=== PATIENT | female | born 1990 | race Caucasian/White ===

== ENCOUNTER 2022-10-22 13:09 | Emergency (ER) | payer OTHER, SELFPAY ==
[2022-10-22 13:29] VITALS: BP 130/79; PULSE 102; RESP 18; TEMP 36.6; O2SAT 97; BMI 34.7
--- NOTE | 2022-10-22 13:29 | ED_ITS ---
HPI - General Adult General Chief complaint: Eye Problems Stated complaint: Vision Problems No Injury Time Seen by Provider: 10/22/22 13:51 Source: patient Mode of arrival: ambulatory Limitations: no limitations History of Present Illness HPI narrative: Patient is a 32 year old assigned female at with no reported medical history presenting to the emergency department today with right eye pain. Patient states that over the last month she has noticed pain behind her right eye, especially when focusing on things. Patient states that she has also noticed an increase general headaches. Patient states that her vision is unaffected. Patient states that she has had an increase in stress at work lately. Patient denies any dizziness, lightheadedness, abdominal pain, nausea, vomiting, fever, chills, blurry vision, double vision, loss of vision, chest pain, difficulty breathing, shortness of breath, back pain, night sweats, pain with urination, increased urinary frequency, increased urinary urgency, blood in her urine or stool, syncope or a near syncopal episode, recent trauma or falls, bowel incontinence, bladder incontinence, bowel retention, bladder retention, or any other complaints at this time. Onset (ago): month(s) (1) Location: head and eyes Severity: mild Severity scale (1-10): 3 Quality: aching and dull Pain Consistency: constant Relieving factors: none Exacerbating factors: none Associated symptoms: headaches Treatments prior to arrival: none Related Data Allergies Allergy/AdvReac Type Severity Reaction Status Date / Time No Known Allergies Allergy Verified 10/22/22 13:29 [No Known Allergies*] Review of Systems Constitutional: Constitutional: Reports no additional constitutional complaints, Denies chills, Denies fever(s), Reports headache(s) and Denies night sweats Eyes: Eyes: Reports no additional eye complaints, Denies blurry vision, Denies change in vision, Denies diplopia, Denies eye discharge, Denies loss of vision and Reports eye pain (behind right eye) ENT: Denies dizziness and Reports headache(s) Cardiovascular: Cardiovascular: Reports no additional cardiovascular complaints, Denies chest pain, Denies lightheadedness, Denies Loss of Consciousness and Denies dyspnea Respiratory: Respiratory: Reports no additional respiratory complaints and Denies dyspnea Gastrointestinal: Gastrointestinal: Reports no additional gastrointestinal complaints, Denies abdominal pain, Denies melena, Denies hematochezia, Denies c hange in bowel habits and Denies change in stool character Genitourinary: Genitourinary: Denies hematuria, Denies urinary frequency, Denies dysuria, Denies urinary incontinence, Denies urinary hesitancy and Denies urinary urgency Musculoskeletal: Musculoskeletal: Reports no additional musculoskeletal complaints, Denies numbness and Denies tingling Neurologic: Denies dizziness, Reports headache(s), Denies loss of vision, Denies numbness and Denies tingling Psychiatric: Psychiatric: Reports no additional psychiatric complaints Endocrine: Endocrine: Reports no additional endocrine complaints Hematologic/Lymphatic: Hematologic/Lymphatic: Reports no additional hematologic/lymphatic complaints Allergic/Immunologic: Allergic/Immunologic: Reports no additional allergic/immunologic complaints [facility] Past Medical History Attestation statement: The following information was validated with the patient. Source: old records reviewed and nursing notes reviewed Social History Social History Advance Directives: No Advance Directives Information Provided: No Physical Exam ED Vital Signs: Vital Signs - 24 hr 10/22/22 13:29 Temperature 97.9 F Pulse Rate 102 H Respiratory Rate 18 Blood Pressure 130/79 Pulse Oximetry 97 Oxygen Delivery Method Room Air BMI result Body Mass Index 34.7 Const General: cooperative, no acute distress, alert and awake Nutritional Appearance: well nourished Orientation/consciousness: patient oriented x3 Limitations: no limitations HENMT Head: Yes normal to inspection and Yes atraumatic Ears: hearing grossly normal bilaterally and external ears normal General nose exam: Normal external nose present, no nasal discharge noted and no epistaxis Face and sinus: Yes normal facial exam, No abrasion and No laceration Mouth: Normal oral and palatal mucosa present, no drooling and no muffled voice Eyes General: appearance normal, both eyes and all related structures Visual Cervantes: normal visual cervantes by confrontation Alignment and Position: alignment normal Periorbital: periorbital findings normal Eyelids: Yes eyelids normal Conjunctivae: conjunctivae normal Sclerae: sclerae normal Corneas: corneas normal Pupils: Equal, round and reactive pupils present EOM: EOMs intact bilaterally Direct Ophthalmoscopy: normal light reflex Neck Neck: Yes normal visual inspection, Yes full ROM and Yes no lymphadenopathy Chest Chest palpation & inspection: normal inspection of the chest Resp Effort & Inspection: normal respiratory effort and able to speak in complete sentences Auscultation: clear to auscultation bilaterally Cardio Rate: regular rate Rhythm: regular rhythm GI Inspection: Yes normal to inspection Palpation (GI): Soft to palpation, not firm, nontender and no guarding Neuro General: patient oriented x3 and moves all extremities Cranial nerves: Yes Equal, round and reactive pupils present Cognition (Neuro): normal cognition Motor exam (neuro): 5/5 motor strength present throughout Sensory Exam: Normal double simultaneous stimulation for sensation Coordination: [id number] test normal Extrem General: Yes normal to inspection, Yes full ROM and Yes capillary refill normal Psych Appearance: grossly normal Mental Status: mental status grossly normal Affect: normal affect Attitude: cooperative Thought process: Normal thought process present Thought content: Normal thought content present Insight: Good insight present (Psych) Course Course Course Narrative: RME: 32yo F w/PMHx Acid Reflux, c/o right eye pressure & feeling like shes going cross eyed x 1.5 months. Admits to light bothering eyes when shes outside. Tried to make appt w/PCP & occupational therapy program director w/o success. Admits to MURGUIA's as well over the past few weeks. [facility] and labs ordered Full HPI, ROS and PE to be performed by primary ED provider. Medical Decision Making Medical Decision Making MDM Narrative: Patient is a 32 year old assigned female at with no reported medical history presenting to the emergency department today with right eye pain and headaches. Patient's physical exam was unremarkable including a normal visual acuity examination. Patient's blood work was unremarkable. I explained my phy sical exam findings as well as all test results to the patient. I answered all questions asked by the patient. Patient declined any medication for pain. I stressed the importance of the patient taking her medication as prescribed. I stressed the importance of the patient following up with her primary care provider and an group insurance specialist. I stressed the importance of the patient returning to the emergency department immediately if her symptoms were to worsen or if she were to develop any dizziness, shortness of breath, difficulty breathing, chest pain, blurry vision, loss of vision, nausea, vomiting, abdominal pain, fever, chills, back pain, or any other complaints. Patient verbalized agreement and understanding with this treatment plan and discharge. Differential Diagnosis Differential Diagnoses: The differential diagnosis associated with the presentation includes Right eye pain Ocular migraines Admission/Observation Consideration of admission/observation: Escalation of care including admission/observation considered Patient would have been admitted to the hospital had her work up had any findings where hospital admission was appropriate and her clinical presentation warranted hospital admission. Lab Data MDM Lab Attestation statement: I reviewed the patient's lab results. My interpretation of these studies and their corresponding values is that they are grossly normal. 10/22/22 14:19 10/22/22 14:19 Labs: Lab Results 10/22/22 10/22/22 Range/Units 14:19 14:19 WBC 7.5 (4.8-10.8) X10*3/uL RBC 4.15 L (4.20-5.50) X10*6/uL Hgb 13.0 (12.0-16.0) g/dl Hct 38.4 (37.0-47.0) % MCV 92.5 (80.0-98.0) fL MCH 31.3 (27.0-33.0) pg MCHC 33.9 (31.0-35.0) g/dl RDW 12.8 (11.0-16.0) % Plt Count 208 (160-400) X10*3/uL MPV 10.3 (9.4-12.3) fL Immature Gran % (Auto) 0.8 H (0.0-0.4) % Neut % (Auto) 64.3 (45-73) % Lymph % (Auto) 29.1 (20-40) % Mcmullen % (Auto) 4.6 (2-11) % Eos % (Auto) 0.9 (0-4) % Baso % (Auto) 0.3 (0-2) % Lymph # (Auto) 2.2 (1.2-4.9) X10*3/uL Mcmullen # (Auto) 0.4 (0.1-1.2) X10*3/uL Eos # (Auto) 0.1 (0.0-0.4) X10*3/uL Baso # (Auto) 0.0 (0.0-0.2) X10*3/uL Abs Immat Gran (auto) 0.06 H (0.00-0.03) X10*3/uL Absolute Neuts (auto) 4.8 (2.0-8.3) x10*3/uL Absolute Nucleated RBC 0.000 (0.0-0.012) X10*3/uL Nucleated RBC % (auto) 0.0 (0.0-0.2) /100WBC Sodium 140 (135-145) mmol/L Potassium 3.9 (3.3-5.1) mmol/L Chloride 108 (96-108) mmol/L Carbon Dioxide 25 (22-29) mmol/L Anion Gap 11 L (12-20) BUN 15 (9-16) mg/dL Creatinine 0.80 (0.5-1.4) mg/dL Estim Creat Clear Calc 101.8 Estimated GFR > 60 Random Glucose 123 H (60-115) mg/dL Calcium 9.6 (8.4-10.2) mg/dL Tests considered The following testing was considered but not selected: CT scan of the head was considered however, the patient's neurological examination was negative and my clinical suspicion for acute intracranial process was low. Discharge Plan Discharge Clinical Impression: Ocular migraine Patient Disposition: Home, Self-Care Instructions: Ocular Migraine (ED) Additional Instructions: Follow up with your primary care provider and an group insurance specialist. Return to the emergency department immediately if your symptoms worsen or if you develop any dizziness, shortness of breath, difficulty breathing, chest pain, blurry vision, loss of vision, nausea, vomiting, abdominal pain, fever, chills, back pain, or any other complaints. [place]: [facility] [facility] [place] (Call to establish and follow up with a primary care provider. If you already have a primary care provider, please follow up with them.) [facility] [place] [facility] Group] (Call to establish and follow up with a primary care provider. If you already have a primary care provider, pl ease follow up with them.) [facility] [place] [facility] [Provider Group] (Call to establish and follow up with a primary care provider. If you already have a primary care provider, please follow up with them.) Suleman Stover [Physician] - (Call to establish and follow up with an group insurance specialist.) Stand Alone Forms: Work/School Release Interventions: ED Discharge Assessment Last Done: 10/22/22 15:08 Discharge Date/Time: 10/22/22 15:09 Print Language: Danish
[2022-10-22 14:24] LABS: MANUAL DIFF FLAG NO
[2022-10-22 14:35] LABS: Basophils Percent Auto 0.3 % (0-2); Eosinophils Absolute Auto 0.1 X10*3/uL (0.0-0.4); Eosinophils Percent Auto 0.9 % (0-4); Hematocrit 38.4 % (37.0-47.0); Imm Gran Abs Auto 0.06 X10*3/uL (0.00-0.03); Imm Gran Pct Auto 0.8 % (0.0-0.4); Lymphocytes Absolute Auto 2.2 X10*3/uL (1.2-4.9); Lymphocytes Percent Auto 29.1 % (20-40); Mean Corpuscular HGB Conc 33.9 g/dl (31.0-35.0); Mean Corpuscular Hemoglobin 31.3 pg (27.0-33.0); Mean Corpuscular Volume 92.5 fL (80.0-98.0); Mean Platelet Volume 10.3 fL (9.4-12.3); Monocytes Absolute Auto 0.4 X10*3/uL (0.1-1.2); Monocytes Percent Auto 4.6 % (2-11); Neutrophils Absolute Auto 4.8 x10*3/uL (2.0-8.3); Neutrophils Percent Auto 64.3 % (45-73); Platelet Count 208 X10*3/uL (160-400); Red Blood Count 4.15 X10*6/uL (4.20-5.50); Red Cell Distribution Width 12.8 % (11.0-16.0); White Blood Count 7.5 X10*3/uL (4.8-10.8)
[2022-10-22 14:47] LABS: Anion Gap 11 (12-20); Blood Urea Nitrogen 15 mg/dL (9-16); Calcium 9.6 mg/dL (8.4-10.2); Carbon Dioxide 25 mmol/L (22-29); Chloride 108 mmol/L (96-108); Creatinine Clr Calc Pharmacy 101.8; Estimated Glomerular Filt Rate > 60; Glucose Random 123 mg/dL (60-115); Potassium 3.9 mmol/L (3.3-5.1); Sodium 140 mmol/L (135-145)
== END 2022-10-22 15:09 | disposition home or self-care (01) ==
PROVIDERS: Physician Assistant; Emergency Provider Emergency Medicine
DX: G43.109 Migraine with aura, not intractable, without status migrainosus (principal); H57.11 Ocular pain, right eye; Z79.899 Other long term (current) drug therapy
CPT/HCPCS: 36415; 80048; 85025; 99283

== ENCOUNTER 2023-02-23 08:29 | Outpatient (AMB) | payer OTHER, SELFPAY ==
[2023-02-23 08:30] VITALS: BP 122/76; PULSE 84; O2SAT 97; BMI 33.9
--- NOTE | 2023-02-23 08:30 | MHC.OFFVIS ---
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 I feel like my headache centers my nose and nasal area. Allergies No Known Allergies [No Known Allergies*] Allergy (Verified 02/23/23 08:38) Medication List - Last Reconciled 02/23/23 by Michelle Urias, SALVADOR famotidine 20 mg PO BID HPI HPI Comments History of Present Illness Details Right-handed 32-yr-old female presents for new pt evaluation of headache disorder. Pt reports she has headaches for the past few yrs- not sure exactly how long. She wonders if this was caused by her hx of sniffing cocaine and heroine- she has been sober x's > 6 yrs now. Headache questionnaire: Previous work-up? None Typical headache characteristics: Prodrome symptoms? Unsure Aura? None Location, quality, characteristics? Starts as pressure in the bridge of her nose, can move into the mid-frontal region. Pain intensity? 6-7/10 Associated symptoms? Photophobia, phonophobia, osmophobia, nausea, activity intolerance Focal weakness, Parethesias, Autonomic s/s? None Postdrome? Some residual symptoms Triggers? stress, lights, smells Any positional, valsalva, exertional, sexual activity triggers? feels increased head pressure if bends over for an extended time Menstrual triggers? Unsure- her menses has been irregular Time of day? more in the midday Duration? 1-2 days Frequency? 1-2 x's per week How does headache impact your life? Works as a customer care agent. Usually does not miss work. May sometimes miss her personal activities. Current acute medication use/interventions: Ibuprofen Previous acute medication use: None Current preventative medication use: None Previous preventative medication use: None Non-pharmacological interventions: Ice, migraine cooling caps, rest. Other history of headache disorder? No History of musculoskeletal disorders or injury? Back pain, lower lumbar scoliosis History of concussion/head injury? None History of mood disorder? ADHD- no longer on tx. Anxiety. History of sleep disorder? Sleeps ok- does wake up a lot- some times to void and sometimes d/t lower back discomfort. Her father has DES and her mother likely has DES. Has bruxism- not tolerating her mouth guard- rubs her gums and causes dry mouth. History of respiratory disease? None History of CV disease? None History of coagulopathy? None History of endocrine or metabolic disease? Has hx of gestational diabetes History of seizure? None History of GI disorder? GERD. More prone to loose stools. Other? Has had skin issues- dandruff, cystic skin lesions, acne. Family planning? No plans- not on control. Does not currently have a partner. Family history of migraine or other headache disorder? Mom has headaches PFSH Medical History (Updated 02/23/23 @ 16:25 by SALVADOR Lorenzo) Substance dependence in remission GERD (gastroesophageal reflux disease) Anxiety ADHD Surgical History [place] teeth removed Family History Father HTN (hypertension) Mother HTN (hypertension) Thyroid disease Social History (Updated 02/23/23 @ 08:40 by BRIAN Cui) Alcohol intake: never Patient Tobacco Use Status: Former Tobacco user Substance Use Type: Marijuana Review of Systems Const Details: See scanned ROS form Physical Exam Vital Signs: Last Vital Signs Pulse 84 02/23/23 08:30 BP 122/76 02/23/23 08:30 Pulse Ox 97 02/23/23 08:30 Oxygen Delivery Method Room Air 02/23/23 08:30 BMI result Body Mass Index 33.9 Const Orientation/consciousness: patient oriented x3 HEENT Other: No palpable scalp tenderness. Mallampati stage IV Head: Yes normocephalic Resp Effort & Inspection: normal respiratory effort and able to speak in complete sentences Back/Spine/Pelvis Other: Bilateral R > L posterior cervical tightness. Cervical ROM: full Left Spurling: normal Right Spurling: normal. Neuro Other: Photophobia General: patient oriented x3 Cranial nerves: Yes CN's II-XII intact bilaterally Cognition (Neuro): normal cognition Gait exam (Neuro): Normal gait present Motor exam (neuro): 5/5 motor strength present throughout Deep tendon reflexes (DTR's): Right triceps reflex intensity grade: 2+, Left triceps reflex intensity grade: 2+, Rt Biceps (C5, C6): 2+, Left biceps reflex intensity grade: 2+, Right brachioradialis reflex intensity grade: 2+, Left brachioradialis reflex intensity grade: 2+, Right patellar reflex intensity grade: 2+ and Left patellar reflex intensity grade: 2+ Coordination: [id number] test normal, tandem gait normal and Romberg test negative Pupils: Normal pupillary reactivity/response: bilateral Psych Appearance: grossly normal Mental Status: mental status grossly normal Speech and movement: Normal speech and movement present Affect: normal affect Attitude: cooperative Thought process: Normal thought process present Assessment & Plan Assessment & Plan (1) Worsening headaches: Comment: w/ positional component. DDx secondary MURGUIA (sinus, high pressure headache); migraine w/o aura Code(s): R51.9 - Headache, unspecified (2) Frontal sinus pain: Code(s): J34.89 - Other specified disorders of nose and nasal sinuses (3) Sinus pain: Code(s): J34.89 - Other specified disorders of nose and nasal sinuses (4) Increased sensitivity of smell: Code(s): R43.1 - Parosmia (5) Sleep difficulties: Code(s): G47.9 - Sleep disorder, unspecified Plan Pt advised to undergo CT sinus to assess for sinus dz/process Pt advised to undergo brain MRI w/wo to assess for secondary etiologies, including of worsening positional headaches w/ increasing photophobia, smell sensitivity, and hx nasal intake of opiods. For overall headache management: Discussed importance of good self-care, including but not limited to maintaining a healthy diet, adequate fluid intake, adequate sleep, and engaging in regular physical activity. For headache triggers: Track headaches, especially after any treatment regimen changes. Migraine [employer]+ is one of many headache tracking apps. Light sensitivity tips: Patient may try blue light filtering glasses, green glasses, green light therapy.. For sleep: Re-try mouth guard- may need to be adjusted by dentist Trial OTC Xylimelts for dry mouth Future considerations- HST. For acute headache treatment: Discussed importance of taking acute medications at the first sign of headache, however stressed importance of avoiding acute medication overuse (especially with combined headache medications). Trial Sumatriptan 100mg tab, 1/2 - 1 tab (50-100mg) at onset of headache, may repeat in 2 hours. Max of 2 tabs (200mg) per 24 hours. May adjunct with OTC Tylenol 650mg q 4 hours, Ibuprofen 600mg q 6 hours, or Naproxen 440mg q 12 hrs prn. Reviewed potential adverse effects of triptans, including but not limited to nausea, fatigue, chest tightness/tingling (usually passes within a few minutes), medication overuse headaches. Previous acute migraine medication trials: Ibuprofen- ineffective Acute migraine medication contraindications: None at this time For headache prevention medication: Discussed that preventative medications should be taken routinely as prescribed for best effect, it may take several weeks for full effect to take effect. Start Riboflavin 400mg qam If Riboflavin ineffective, start Amitriptyline 10mg qhs. Previous migraine prevention medication trials: None Migraine prevention medication contraindications: Would avoid Magnesium- d/t pt prone to frequent stools. For ADHD: Pt will be starting college classes next month. Information given on adult ADHD resources- advsied her to read/explore these prior to the start of her semester Pt to follow-up in 1.5-2 months or sooner prn. Orders: Orders CT sinus wo IV con Today J34.89 - Other specified disorders of nose and nasal sinuses, R43.1 - Parosmia, R51.9 - Headache, unspecified MR head/brain wo/w con Today J34.89 - Other specified disorders of nose and nasal sinuses, R43.1 - Parosmia, R51.9 - Headache, unspecified Medications: New riboflavin (vitamin B2) 400 mg PO DAILY 30 days 30 tabs 6RF amitriptyline 10 mg PO BEDTIME 30 days 30 tabs 3RF sumatriptan succinate (0.5 - 1 x 100 mg) 50 - 100 mg orally at onset of headache, may repeat in 2 hrs PRN; max 2 tabs per day or 4 tabs/week (may take with Ibuprofen) 30 days 12 tabs 6RF migraine headache Coding Level of Care Code New Pt Level 4 (68072) Diagnoses Worsening headaches R51.9 Frontal sinus pain J34.89 Sinus pain J34.89 Increased sensitivity of smell R43.1 Sleep difficulties G47.9
== END 2023-02-23 09:46 | disposition home or self-care (01) ==
PROVIDERS: Visit Provider Nurse Practitioner Family
DX: R51.9 Headache, unspecified (principal); J34.89 Other specified disorders of nose and nasal sinuses; R43.1 Parosmia; G47.9 Sleep disorder, unspecified
CPT/HCPCS: 99204

== ENCOUNTER → 2023-02-23 08:29 | Outpatient (BNVA) | payer OTHER, SELFPAY | PROVIDERS: Visit Provider Nurse Practitioner Family | DX: R51.9 Headache, unspecified (principal); J34.89 Other specified disorders of nose and nasal sinuses; R43.1 Parosmia; G47.9 Sleep disorder, unspecified | CPT/HCPCS: 99202 ==

== ENCOUNTER 2023-03-10 07:43 | Emergency (ER) | payer OTHER, SELFPAY ==
--- NOTE | ~2023-03-10 | XR_ITS ---
EXAMINATION: XR CHEST CLINICAL INFORMATION: Chest pain COMPARISON: 06/08/2015 TECHNIQUE: Frontal view of the chest was obtained. FINDINGS: Lungs are well-inflated and clear. Trachea is midline in position. No interstitial disease, consolidation or mass. No pleural effusion or pneumothorax. Cardiac silhouette and pulmonary vessels are normal in size. The mediastinum and jacquelin have normal contour. The visualized bones and upper abdomen are unremarkable. XR/XR chest 1V IMPRESSION: No acute cardiopulmonary abnormality.
--- NOTE | 2023-03-10 07:49 | ECG_ITS ---
Test Reason : cp Blood Pressure : / mmHG Vent. Rate : 095 BPM Atrial Rate : 095 BPM P-R Int : 146 ms QRS Dur : 090 ms QT Int : 354 ms P-R-T Axes : 035 017 045 degrees QTc Int : 444 ms Normal sinus rhythm Normal ECG When compared with ECG of 08-JUN-2015 09:32, No significant change was found Referred By: Generic ED Physician Electronically Signed By:Earl Cruz
[2023-03-10 08:03] VITALS: BP 133/90; PULSE 94; RESP 18; TEMP 36.3; O2SAT 98; BMI 33.4
[2023-03-10 08:51] LABS: Influenza A PCR NEGATIVE (Negative); Influenza B PCR NEGATIVE (Negative); Resp Syncy Virus RNA Qual PCR NEGATIVE (Negative); SARS COV2 PCR INHOUSE NEGATIVE (Negative)
[2023-03-10 09:42] VITALS: BP 124/77; PULSE 81; RESP 18; TEMP 37.2; O2SAT 97
--- NOTE | 2023-03-10 09:57 | ED_ITS ---
HPI - URI/Sore Throat General Chief Complaint: Upper Respiratory Symptoms Stated Complaint: RSV? Chest pain/R ear clogged Time Seen by Provider: 03/10/23 09:03 Source: patient Mode of arrival: ambulatory Limitations: no limitations History of Present Illness HPI Narrative: 32-year-old female presents with productive cough cough, congestion, fatigue, malaise, myalgias, muffled hearing in the right ear, runny nose, substernal nonradiating chest pain times 1221. Patient reports this started with a sore throat which has since resolved and then it progressed to what she has no. Son at home tested + for RSV last Related Data Home Medications Medication Instructions Recorded Confirmed famotidine 20 mg tablet 20 mg PO BID 02/23/23 02/23/23 Previous Rx's Medication Instructions Recorded amitriptyline 10 mg tablet 10 mg PO BEDTIME 30 days #30 tabs 02/23/23 riboflavin (vitamin B2) 400 mg 400 mg PO DAILY 30 days #30 tabs 02/23/23 tablet sumatriptan succinate 100 mg tablet 50 - 100 mg (0.5 - 1 x 100 mg) PO 02/23/23 .COMPLEX PRN migraine headache 30 days #12 tabs albuterol sulfate 90 mcg/actuation 2 inh inhalation Q4-6H PRN 03/10/23 breath activated powder inhaler shortness of breath or wheezing #1 ea azithromycin 250 mg tablet See Rx Instructions PO .COMPLEX #6 03/10/23 tabs prednisone 20 mg tablet 40 mg (2 x 20 mg) PO DAILY 5 days 03/10/23 #10 tabs Allergies Allergy/AdvReac Type Severity Reaction Status Date / Time No Known Allergies Allergy Verified 03/10/23 08:02 [No Known Allergies*] Review of Systems 2 Review of Systems: Constitutional : No Weight loss, No Fever, No Chills, No Fatigue, No Malaise ENT/Mouth : No sore throat, No Rhinorrhea, +ear pain Eyes: No Eye Pain, No Swelling, No Redness Cardiovascular : + Chest Pain, No SOB, No Dyspnea on Exertion, No Orthopnea, No Edema, No Palpitations Respiratory : + Cough, + Sputum, No Wheezing Gastrointestinal : No Nausea, No Vomiting, No Diarrhea, No Constipation, No abdominal Pain, No Hematochezia, No Melena Genitourinary : No Dysuria, No Urinary Frequency, No Hematuria, Musculoskeletal : No joint pain, No Myalgias, No Joint Swelling Skin : No Skin Lesions, No rash Neuro : No Weakness, No Numbness, No Dizziness, No Headache Psych : No Anxiety/Panic, No Depression All other systems reviewed and are negative Yes all other systems are reviewed and are negative [facility] Past Medical History Attestation statement: The following information was validated with the patient. Source: old records reviewed and nursing notes reviewed Onset Date is defined in the Problem List Problems that require an onset date and time if occurred within 24 hrs of arrival to the ED Aortic Dissection and Rupture; Neurologic impairment; Cardiopulmonary Arrest; Endotracheal Intubation; Insertion or Replacement of Mechanical Circulatory Assist Device Medical History Substance dependence in remission GERD (gastroesophageal reflux disease) Anxiety ADHD Surgical History [place] teeth removed Family History Family History Father HTN (hypertension) Mother HTN (hypertension) Thyroid disease Social History Social History Alcohol intake: never Patient Tobacco Use Status: Former Tobacco user Smoked in Last 30 Days: No Use of substances other than those prescribed or required for medical reasons: Yes Substance Use Type: Marijuana Advance Directives: No Patient : No Physical Exam 2 Vital Signs: Vital Signs: Last Vital Signs Temp 98.9 F 03/10/23 09:42 Pulse 81 03/10/23 09:42 Resp 18 03/10/23 09:42 BP 124/77 03/10/23 09:42 Pulse Ox 97 03/10/23 09:42 O2 Del Method Room Air 03/10/23 09:42 BMI result Body Mass Index 33.4 vss Appearance: Alert.? Oriented X3.? No acute distress.? Head: Normocephalic, atraumatic, no step-offs or deformities Eyes: Pupils equal, round and reactive to light.? ENT: Pharynx normal.?Patent midlineuvula speaking in full sentences controlling secretions. R ear unremarkable no errythema or bulging of TM or EC Neck: Normal inspection.? Neck supple.? CVS: Normal heart rate and rhythm.? Pulses normal.? Respiratory: No respiratory distress.? Breath sounds normal.? Abdomen: Soft and nontender.? Skin: Skin warm and dry.? Normal skin color.? Normal skin turgor.? Extremities: No lower extremity edema.? No calf ttp. 5/5 strength to bilateral upper and lower extremities Neuro: Oriented X 3.? No motor deficit.? No sensory deficit. CN 2-12 intact Course Reevaluation(s) Reevaluation #1: CBC unremarkable. Chemistry no acute findings requiring intervention. Troponin negative, EKG nonischemic. Flu/COVID/RSV negative. Strep negative. Chest x- ray appears unremarkable. Patient to be discharged home with treatment for bronchitis. Educated patient on diagnosis and treatment plan, answered all question, patient verbalizes understanding. At this time patient will be discharged home, advised to return with new or worsening symptoms. Educated on worrisome signs and symptoms and when to return. At this time I feel comfortable discharge home. Time: 11:29 Medical Decision Making Medical Decision Making [facility] Narrative: 1007 32 yo f presents w/ URI sx PE benign History and physical exam concerning for bronchitis versus viral illness versus rsv. Unlikely pulmonary embolism, ACS, dissection, pneumonia, ARDS . No signs of retropharyngeal abscess, peritonsillar abscess, otitis media, otitis externa, mastoiditis. Plan- labs, imaging, viral test Differential Diagnosis Differential Diagnoses: The differential diagnosis associated with the presentation includes History and physical exam concerning for bronchitis versus viral illness versus rsv. Unlikely pulmonary embolism, ACS, dissection, pneumonia, ARDS . No signs of retropharyngeal abscess, peritonsillar abscess, otitis media, otitis externa, mastoiditis. Admission/Observation Consideration of admission/observation: Escalation of care including admission/observation considered Lab Data [facility] Lab Attestation statement: I reviewed the patient's lab results. 03/10/23 10:39 03/10/23 10:39 Labs: Lab Results 03/10/23 03/10/23 03/10/23 Range/Units 08:10 10:38 10:39 WBC 6.9 (4.8-10.8) X10*3/uL RBC 4.50 (4.20-5.50) X10*6/uL Hgb 13.9 (12.0-16.0) g/dl Hct 40.1 (37.0-47.0) % MCV 89.1 (80.0-98.0) fL MCH 30.9 (27.0-33.0) pg MCHC 34.7 (31.0-35.0) g/dl RDW 12.9 (11.0-16.0) % Plt Count 270 D (160-400) X10*3/uL MPV 9.5 (9.4-12.3) fL Immature Gran % (Auto) 0.4 (0.0-0.4) % Neut % (Auto) 57.9 (45-73) % Lymph % (Auto) 35.3 (20-40) % [place] % (Auto) 5.8 (2-11) % Eos % (Auto) 0.3 (0-4) % Baso % (Auto) 0.3 (0-2) % Lymph # (Auto) 2.4 (1.2-4.9) X10*3/uL [place] # (Auto) 0.4 (0.1-1.2) X10*3/uL Eos # (Auto) 0.0 (0.0-0.4) X10*3/uL Baso # (Auto) 0.0 (0.0-0.2) X10*3/uL Abs Immat Gran (auto) 0.03 (0.00-0.03) X10*3/uL Absolute Neuts (auto) 4.0 (2.0-8.3) x10*3/uL Absolute Nucleated RBC 0.000 (0.0-0.012) X10*3/uL Nucleated RBC % (auto) 0.0 (0.0-0.2) /100WBC Sodium 141 (135-145) mmol/L Potassium 3.6 (3.3-5.1) mmol/L Chloride 112 H (96-108) mmol/L Carbon Dioxide 19 L (22-29) mmol/L Anion Gap 14 (12-20) BUN 11 (9-16) mg/dL Creatinine 0.67 (0.5-1.4) mg/dL Estim Creat Clear Calc 119.1 Estimated GFR > 60 Random Glucose 93 (60-115) mg/dL Calcium 9.2 (8.4-10.2) mg/dL Total Bilirubin 0.5 (0.0-1.0) mg/dL AST 15 (5-31) U/L ALT 22 (0-31) U/L Alkaline Phosphatase 77 (39-117) U/L Troponin I High Sens < 2.7 (<3.5-17.0) ng/L Total Protein 7.7 (6.5-8.0) g/dL Albumin 4.5 (3.5-5.0) g/dL Influenza Type A (PCR) NEGATIVE (Negative) Influenza Type B (PCR) NEGATIVE (Negative) RSV RNA Qual (PCR) NEGATIVE (Negative) SARS-CoV-2 RNA (RT-PCR) NEGATIVE (Negative) S. pyogenes GrpA [place] Negative (Negative) Independent Interpretation I performed an independent interpretation of an: EKG (Ventricular rate of 95, IA normal, QRS normal, QT/QTC normal. No signs of acute ischemia.) and Plain X-Ray Radiology Impression Discussion of test interpretation with radiology: I have reviewed the radiologist's reading. Discharge Plan Discharge Clinical Impression: Bronchitis Patient Disposition: Home, Self-Care Instructions: Acute Bronchitis (ED) Additional Instructions: Take your medications as prescribed. If you were prescribed antibiotics today, it is important that you take your medication to their entirety, do not skip any doses, do not finish them early. Follow-up with your primary care provider this week. Return to the emergency department with new or worsening symptoms. Such as fevers, chills, chest pain, shortness of breath, nausea, vomiting, dizziness, headache, vision changes, lethargy In case of emergency call 911 Prescriptions: New albuterol sulfate 90 mcg/actuation aerosol powdr breath activated 2 inh inhalation Q4-6H PRN (Reason: shortness of breath or wheezing) Qty: 1 0RF azithromycin 250 mg tablet See Rx Instructions .ROUTE .COMPLEX Qty: 6 0RF Rx Instructions: For 250 mg dose pack: take 500 mg today (day 1), then 250 mg for 4 days (days 2-5) prednisone 20 mg tablet 40 mg PO DAILY 5 Days Qty: 10 0RF No Action famotidine 20 mg tablet 20 mg PO BID sumatriptan succinate 100 mg tablet 50 - 100 mg PO .COMPLEX PRN (Reason: migraine headache) 30 Days Qty: 12 6RF Rx Instructions: 50 - 100 mg orally at onset of headache, may repeat in 2 hrs PRN; max 2 tabs per day or 4 tabs/week (may take with Ibuprofen) riboflavin (vitamin B2) 400 mg tablet 400 mg PO DAILY 30 Days Qty: 30 6RF amitriptyline 10 mg tablet 10 mg PO BEDTIME 30 Days Qty: 30 3RF Referrals: Physician,Unknown J [Primary Care Provider] - 2 days
[2023-03-10 10:43] LABS: MANUAL DIFF FLAG NO
[2023-03-10 10:45] LABS: Basophils Percent Auto 0.3 % (0-2); Eosinophils Percent Auto 0.3 % (0-4); Hematocrit 40.1 % (37.0-47.0); Hemoglobin 13.9 g/dl (12.0-16.0); Imm Gran Abs Auto 0.03 X10*3/uL (0.00-0.03); Imm Gran Pct Auto 0.4 % (0.0-0.4); Lymphocytes Absolute Auto 2.4 X10*3/uL (1.2-4.9); Lymphocytes Percent Auto 35.3 % (20-40); Mean Corpuscular HGB Conc 34.7 g/dl (31.0-35.0); Mean Corpuscular Hemoglobin 30.9 pg (27.0-33.0); Mean Corpuscular Volume 89.1 fL (80.0-98.0); Mean Platelet Volume 9.5 fL (9.4-12.3); Monocytes Absolute Auto 0.4 X10*3/uL (0.1-1.2); Monocytes Percent Auto 5.8 % (2-11); Neutrophils Percent Auto 57.9 % (45-73); Platelet Count 270 X10*3/uL (160-400); Red Cell Distribution Width 12.9 % (11.0-16.0); White Blood Count 6.9 X10*3/uL (4.8-10.8)
[2023-03-10 11:03] LABS: Alanine Aminotransferase 22 U/L (0-31); Albumin Level 4.5 g/dL (3.5-5.0); Alkaline Phosphatase 77 U/L (39-117); Anion Gap 14 (12-20); Aspartate Amino Transferase 15 U/L (5-31); Bilirubin Total 0.5 mg/dL (0.0-1.0); Blood Urea Nitrogen 11 mg/dL (9-16); Calcium 9.2 mg/dL (8.4-10.2); Carbon Dioxide 19 mmol/L (22-29); Chloride 112 mmol/L (96-108); Creatinine Clr Calc Pharmacy 119.1; Estimated Glomerular Filt Rate > 60; Glucose Random 93 mg/dL (60-115); Potassium 3.6 mmol/L (3.3-5.1); Sodium 141 mmol/L (135-145); Total Protein 7.7 g/dL (6.5-8.0)
[2023-03-10 11:13] LABS: Troponin-I High Sensitivity < 2.7 ng/L (<3.5-17.0)
[2023-03-10 11:26] LABS: IDNOW Serial# 08D9AD1C; Strep A Nucleic Acid Negative (Negative)
== END 2023-03-10 11:41 | disposition home or self-care (01) ==
PROVIDERS: Physician Assistant; Emergency Provider Emergency Medicine
DX: J40 Bronchitis, not specified as acute or chronic (principal); Z20.822 Contact with and (suspected) exposure to COVID-19; Z20.828 Contact with and (suspected) exposure to other viral communicable diseases; H92.01 Otalgia, right ear; Z87.891 Personal history of nicotine dependence
CPT/HCPCS: 0241U; 36415; 71045; 80053; 84484; 85025; 87651; 93005; 99283; 99284

== ENCOUNTER → 2023-03-10 07:49 | Outpatient (BNV) | payer OTHER, SELFPAY | PROVIDERS: Emergency Provider Emergency Medicine; Visit Provider Internal Medicine Cardiovascular Disease | DX: R07.9 Chest pain, unspecified (principal) | CPT/HCPCS: 93010 ==

== ENCOUNTER 2023-03-25 07:37 | Outpatient (REF) | payer OTHER, SELFPAY ==
--- NOTE | ~2023-03-25 | CT_ITS ---
CT SINUS WITHOUT CONTRAST HISTORY: Frontal sinus pain TECHNIQUE: CT images of the paranasal sinuses were acquired without contrast. This CT examination was performed using dose optimization techniques as appropriate, variously including the following: *Automated exposure control *Adjustment of mA and/or kV according to patient size (this includes techniques or standardized protocols for targeted exams where dose is matched to indication/reason for exam; i.e. extremities or head) *Use of iterative reconstruction technique DLP: 87.72 mGy-cm COMPARISON: None available FINDINGS: NASAL CAVITY: Sigmoidal nasal septal deviation with leftward curvature anteriorly narrowing the left nasal passage and mild rightward curvature of the more posterior midportion with small rightward bony spur. The nasal cavity is well aerated. The olfactory fossa are relatively symmetric. No evidence of Keros type III cribriform plate (lateral lamella 8-16 mm). FRONTAL SINUS: LEFT: Clear with patent frontal sinus drainage pathway. Anterior and posterior accessory frontal recess air cells are noted. RIGHT: Clear with patent frontal sinus drainage pathway. Anterior and posterior accessory frontal recess air cells are noted. MAXILLARY SINUS: LEFT: Trace mucosal disease. with mucosal septation traversing the sinus ostium with otherwise patent ostiomeatal unit. RIGHT: Trace mucosal disease with retention cyst/polyp in the alveolar recess and patent osteomeatal unit. ETHMOID AIR CELLS: LEFT: Clear RIGHT: Clear [place] papyracea: Intact. The left anterior ethmoid canal traverses the ethmoid air cells. SPHENOID SINUS: LEFT: Clear with patent ostium and sphenoethmoidal recess. RIGHT: Dominant and largely clear with mucosal disease traversing the ostium. Patent sphenoethmoidal recess. The sphenoid septum does not insert onto the carotid canal. Sphenoethmoidal ([place]) cell: None. OTHER: Normal appearance of the orbits. The carotid canals are covered by bone. The temporomandibular joints are normal. The mastoid air cells and middle ear cavities are well aerated. Limited evaluation of the intracranial structures without significant abnormalities. CT/CT sinus wo IV con IMPRESSION: 1. Sigmoidal nasal septal deviation with leftward curvature anteriorly narrowing the left nasal passage and mild rightward curvature of the more posterior midportion with small rightward bony spur. 2. Mild mucosal disease within the bilateral maxillary sinuses with retention cyst in the right maxillary alveolar recess. Otherwise no significant paranasal sinus mucosal disease.
== END 2023-03-25 07:38 | disposition home or self-care (01) ==
LOC: HO.CT 07:37
PROVIDERS: Visit Provider Nurse Practitioner Family
DX: R51.9 Headache, unspecified (principal); J34.89 Other specified disorders of nose and nasal sinuses; R43.1 Parosmia
CPT/HCPCS: 70486

== ENCOUNTER 2023-04-13 07:37 | Outpatient (AMB) | payer OTHER, SELFPAY ==
--- NOTE | 2023-04-13 07:38 | A.OFFVIS_ITS ---
Intake Intake Visit Reasons: 8 wks f/u - Frequent headaches [phone] Intake Note: Patient following up on headaches. headaches are better,she gave me meds but I'm not sure If I have to take it everyday. Allergies No Known Allergies [No Known Allergies*] Allergy (Verified 04/13/23 07:39) Medication List - Last Reconciled 04/13/23 by Michelle Urias, SALVADOR albuterol sulfate 90 mcg/actuation 2 inhalations inhalation Q4-6H PRN amitriptyline 10 mg PO BEDTIME 30 days azithromycin For 250 mg dose pack: take 500 mg today (day 1), then 250 mg for 4 days (days 2-5) famotidine 20 mg PO BID prednisone 40 mg (2 x 20 mg) PO DAILY 5 days riboflavin (vitamin B2) 400 mg PO DAILY 30 days sumatriptan succinate 50 - 100 mg orally at onset of headache, may repeat in 2 hrs PRN; max 2 tabs per day or 4 tabs/week (may take with Ibuprofen) 30 days HPI HPI Comments History of Present Illness Details 33-yr-old female presents for f/u televi [facility]or [facility]o visit via [place] for f/u migraine. Pt reports she has not started the migraine tx we discussed at the last visit, as she was had RSV and then also did not remember exactly how to take them and if any would worsen her GERD s/s. She states she is doing a bit better- headaches are not quite as bad. The headaches do start in the bridge of her nose. Often her glasses cause discomfort in the bridge of her nose. 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 Brain MRI scheduled for 04/17/23. 03/25/23, CT/CT sinus wo IV con IMPRESSION: 1. Sigmoidal nasal septal deviation wit h leftward curvature anteriorly narrowing the left nasal passage and mild rightward curvature of the more posterior midportion with small rightward bony spur. 2. Mild mucosal disease within the bila teral maxillary sinuses with retention cyst in the right maxillary alveolar recess. Otherwise no significant paranasal sinus mucosal disease. [facility] Medical History Substance dependence in remission GERD (gastroesophageal reflux disease) Anxiety ADHD Surgical History [place] teeth removed Family History Father HTN (hypertension) Mother HTN (hypertension) Thyroid disease Social History Alcohol intake: never Patient Tobacco Use Status: Former Tobacco user Substance Use Type: Marijuana Physical Exam Const General: cooperative and no acute distress Orientation/consciousness: patient oriented x3 Resp Effort & Inspection: normal respiratory effort and able to speak in complete sentences Neuro General: patient oriented x3 Cognition (Neuro): normal cognition Psych Appearance: grossly normal Mental Status: mental status grossly normal Speech and movement: Normal speech and movement present Affect: normal affect Attitude: cooperative Assessment & Plan Assessment & Plan (1) Frontal sinus pain: Code(s): J34.89 - Other specified disorders of nose and nasal sinuses (2) Nasal septal spur: Comment: sinus CT: Sigmoidal nasal septal deviation with leftward curvature anteriorly narrowing the left nasal passage and mild rightward curvature of the more posterior midportion with small rightward bony spur. Code(s): J34.89 - Other specified disorders of nose and nasal sinuses (3) Nose pain: Code(s): J34.89 - Other specified disorders of nose and nasal sinuses (4) Worsening headaches: Comment: w/ positional component. DDx secondary MURGUIA (sinus, high pressure headache); migraine w/o aura Code(s): R51.9 - Headache, unspecified (5) Increased sensitivity of smell: Code(s): R43.1 - Parosmia Plan Reviewed CT sinus- nasal septum spur. Will refer to ENT. Brain MRI w/wo- as scheduled- to assess for secondary etiologies, including of worsening positional headaches w/ increasing photophobia, smell sensitivity, and hx nasal intake of opiods. ? For overall headache management: Continue to optimize good self-care, including but not limited to maintaining a healthy diet, adequate fluid intake, adequate sleep, and engaging in regular physical activity. For headache triggers: Track headaches. Light sensitivity tips: Patient may try blue light filtering glasses, green glasses, green light therapy.. For sleep: Mouth guard- qhs Future considerations- HST. ? For acute headache treatment: Again try Sumatriptan 100mg tab, 1/2 - 1 tab (50-100mg) at onset of headache, may repeat in 2 hours. Max of 2 tabs (200mg) per 24 hours. May adjunct with OTC Tylenol 650mg q 4 hours, Ibuprofen 600mg q 6 hours, or Naproxen 440mg q 12 hrs prn. Previous acute migraine medication trials: Ibuprofen- ineffective Acute migraine medication contraindications: None at this time ? For headache prevention medication: Discussed that preventative medications should be taken routinely as prescribed for best effect, it may take several weeks for full effect to take effect. Start Riboflavin 400mg qam If Riboflavin ineffective, start Amitriptyline 10mg qhs. Previous migraine prevention medication trials: None Migraine prevention medication contraindications: Would avoid Magnesium- d/t pt prone to frequent stools. ? For ADHD: Monitor- pt has started college classes. Information given on adult ADHD resources- advised her to read/explore these prior to the start of her semester ? Pt to follow-up in 3 months or sooner prn. Orders: Referrals Ear/Nose/Throat Referral J34.89 - Other specified disorders of nose and nasal sinuses Telehealth Telehealth Location of provider rendering services: practice address Location of patient: address on file Patient Identification confirmed using: Name, : Yes Telehealth method: video Patient verbally consented to treatment: Yes Patient verbally consented to billing insurance company: Yes Patient informed of any privacy concerns related to visit: Yes Minutes spent on Phone/Video with Pt.: 9 Coding Level of Care Code Tele Est Pt Level 4 (54979) Diagnoses Frontal sinus pain J34.89 Nasal septal spur J34.89 Nose pain J34.89 Worsening headaches R51.9 Increased sensitivity of smell R43.1
== END 2023-04-13 10:09 | disposition home or self-care (01) ==
LOC: HO.HSMS 07:37
PROVIDERS: Visit Provider Nurse Practitioner Family
DX: J34.89 Other specified disorders of nose and nasal sinuses (principal); R51.9 Headache, unspecified; R43.1 Parosmia
CPT/HCPCS: 99214

== ENCOUNTER → 2023-04-13 07:37 | Outpatient (BNVA) | payer OTHER, SELFPAY | PROVIDERS: Visit Provider Nurse Practitioner Family ==

== ENCOUNTER 2023-04-17 08:08 | Outpatient (REF) | payer OTHER, SELFPAY ==
--- NOTE | ~2023-04-17 | MR_ITS ---
EXAMINATION: MR BRAIN WITHOUT CONTRAST CLINICAL INFORMATION: Headache COMPARISON: None available. TECHNIQUE: MRI of the brain was obtained using routine sequences without contrast. Patient was unable to complete all the prescribed sequences and refused intravenous contrast administration. FINDINGS: Ventricles, sulci and cisterns are normal. No focal cerebral, brainstem or cerebellar lesions with abnormal signal can be seen. Diffusion weighted images show no abnormal regional decrease in diffusion. Normal flow voids of major intracerebral blood vessels are seen in the visualized portion. The pituitary gland is normal. Optic chiasm is not displaced. Cerebellar tonsils position is normal. MR/MR head/brain wo con IMPRESSION: 1. Normal limited MRI scan of the brain. 2. No acute cerebral infarction is seen. 3. No evidence of space occupying mass lesion could be found. 4. No evidence of intracranial hemorrhage.
== END 2023-04-17 08:09 | disposition home or self-care (01) ==
LOC: HO.MRI 08:08
PROVIDERS: Visit Provider Nurse Practitioner Family
DX: J34.89 Other specified disorders of nose and nasal sinuses (principal); R43.1 Parosmia; R51.9 Headache, unspecified
CPT/HCPCS: 70551

== ENCOUNTER 2023-12-02 19:54 | Emergency (ER) | payer OTHER, SELFPAY ==
[2023-12-02 20:16] VITALS: BP 140/96; PULSE 103; RESP 18; TEMP 36.2; O2SAT 98; BMI 36.6
--- NOTE | 2023-12-02 20:17 | ED_ITS ---
HPI - Skin/Abscess/Foreign Bdy General Chief complaint: Skin/Abscess/Foreign Body Stated complaint: infected L breast ?cyst Time Seen by Provider: 12/02/23 20:25 Source: patient, RN notes reviewed and old records reviewed Mode of arrival: ambulatory History of Present Illness ED Provider: Sepideh Cunningham PA-C HPI narrative: 33-year-old female with no significant past medical history presenting to the ED complaining of painful, infected cyst to left breast x 2 weeks. States saw materials associate and was started on clindamycin gel and p.o. Keflex, has taken 2 days' worth of medications without relief. States try to drain at home with some pus expressed. Denies active drainage at present, fever/chills, nipple discharge, skin changes. Related Data Home Medications ?Medication ?Instructions ?Recorded ?Confirmed famotidine 20 mg tablet 20 mg PO BID 02/23/23 04/13/23 Previous Rx's ?Medication ?Instructions ?Recorded amitriptyline 10 mg tablet 10 mg PO BEDTIME 30 days #30 tabs 02/23/23 riboflavin (vitamin B2) 400 mg 400 mg PO DAILY 30 days #30 tabs 02/23/23 tablet sumatriptan succinate 100 mg tablet 50 - 100 mg (0.5 - 1 x 100 mg) PO 02/23/23 .COMPLEX PRN migraine headache 30 days #12 tabs albuterol sulfate 90 mcg/actuation 2 inh inhalation Q4-6H PRN 03/10/23 breath activated powder inhaler shortness of breath or wheezing #1 ea azithromycin 250 mg tablet See Rx Instructions PO .COMPLEX #6 03/10/23 tabs prednisone 20 mg tablet 40 mg (2 x 20 mg) PO DAILY 5 days 03/10/23 #10 tabs Allergies Allergy/AdvReac Type Severity Reaction Status Date / Time No Known Allergies Allergy Verified 12/02/23 20:21 [No Known Allergies*] Review of Systems Review of Systems: Yes all other systems are reviewed and are negative Constitutional: Constitutional: Reports as per [facility] Past Medical History Attestation statement: The following information was validated with the patient. Source: old records reviewed Medical History Substance dependence in remission GERD (gastroesophageal reflux disease) Anxiety ADHD Surgical History [place] teeth removed Family History Family History Father HTN (hypertension) Mother HTN (hypertension) Thyroid disease Social History Social History Alcohol intake: never Patient Tobacco Use Status: Former Tobacco user Substance Use Type: Marijuana Physical Exam Vital Signs: Vital Signs: Last Vital Signs Temp 97.2 F 12/02/23 20:16 Pulse 103 H 12/02/23 20:16 Resp 18 12/02/23 20:16 BP 140/96 H 12/02/23 20:16 Pulse Ox 98 12/02/23 20:16 O2 Del Method Room Air 12/02/23 20:16 BMI result Body Mass Index 36.6 Const: General: cooperative, healthy appearing and no acute distress Orientation/consciousness: patient oriented x3 Limitations: no limitations HEENT: Head: Yes normal to inspection and Yes atraumatic Ears: hearing grossly normal bilaterally General nose exam: Normal external nose present Face and sinus: Yes normal facial exam Eyes: General: appearance normal, both eyes and all related structures EOM: EOMs intact bilaterally Neck: Neck: Yes normal visual inspection and Yes no meningeal signs Resp: Effort & Inspection: normal respiratory effort and no respiratory distress Cardio: Rate: regular rate Skin: Other: + small superficial indurated abscess no leslie to left breast with point central fluctuance and surrounding erythema. Mildly tender. No crepitus. No other skin changes Neuro: General: patient oriented x3, tone normal and no meningeal signs Cranial nerves: Yes CN's II-XII intact bilaterally Gait exam (Neuro): Normal gait present Extrem: General: Yes normal to inspection Course Course Course Narrative: -small amount of pus and blood expressed with needle aspiration. > patient has not failed outpatient treatment yet, only taken 2 days of Abx. Medical Decision Making Medical Decision Making MDM Narrative: 33-year-old female with no significant past medical history presenting to the ED complaining of painful, infected cyst to left breast x 2 weeks. On exam mildly tachycardic, NAD, nontoxic appearing, physical exam as noted above. Concern for small abscess with overlying cellulitis. Low suspicion for severe sepsis Plan: Needle aspiration, continue previously prescribed topical clindamycin and p.o. Keflex. Please refer to course for remaining clinical decision making, interpretation of labs/imaging results, and discussions with consultants and/or family members. Results discussed with patient including worrisome signs and symptoms and strict return precautions, and when to return to the emergency department. They verbalized understanding and feel safe for discharge at this time. Differential Diagnosis Differential Diagnoses: The differential diagnosis associated with the presentation includes As above External Record Review External record reviewed: Inpatient record, Office record, Outpatient record, Prior outpatient labs, Prior outpatient radiology, Primary care record and Outside ED record Tests considered The following testing was considered but not selected: As above Procedures Abscess I/D Site: other (breast) Side (if applicable): left Technique: needle aspiration Sent for culture/gram staining?: No Irrigation: No Packing used?: none Discharge Plan Discharge Clinical Impression: Abscess, Cellulitis Patient Disposition: Home, Self-Care Instructions: Cellulitis (DC), Abscess (ED), Warm Compress or Soak (ED) Additional Instructions: CONTINUE previously prescribed antibiotics Apply warm compresses If area is growing, becomes more red, has persistent drainage, you have fever or increasing pain return to the ED Prescriptions: No Action albuterol sulfate 90 mcg/actuation aerosol powdr breath activated 2 inh inhalation Q4-6H PRN (Reason: shortness of breath or wheezing) Qty: 1 0RF azithromycin 250 mg tablet See Rx Instructions .ROUTE .COMPLEX Qty: 6 0RF Rx Instructions: For 250 mg dose pack: take 500 mg today (day 1), then 250 mg for 4 days (days 2-5) prednisone 20 mg tablet 40 mg PO DAILY 5 Days Qty: 10 0RF famotidine 20 mg tablet 20 mg PO BID sumatriptan succinate 100 mg tablet 50 - 100 mg PO .COMPLEX PRN (Reason: migraine headache) 30 Days Qty: 12 6RF Rx Instructions: 50 - 100 mg orally at onset of headache, may repeat in 2 hrs PRN; max 2 tabs per day or 4 tabs/week (may take with Ibuprofen) riboflavin (vitamin B2) 400 mg tablet 400 mg PO DAILY 30 Days Qty: 30 6RF amitriptyline 10 mg tablet 10 mg PO BEDTIME 30 Days Qty: 30 3RF Referrals: Physician,Unknown J [Primary Care Provider] - 5 days Print Language: Arabic
[2023-12-02 20:50] VITALS: BP 140/96; PULSE 103; RESP 18; TEMP 36.2; O2SAT 98
== END 2023-12-02 20:52 | disposition home or self-care (01) ==
PROVIDERS: Emergency Provider Emergency Medicine
DX: N61.1 Abscess of the breast and nipple (principal); Z87.891 Personal history of nicotine dependence
CPT/HCPCS: 10160; 99282; 99284

== ENCOUNTER 2025-01-14 05:25 | Emergency (ER) | payer OTHER, SELFPAY ==
--- NOTE | ~2025-01-14 | CT_ITS ---
CLINICAL HISTORY: Left flank pain rule out kidney stone CT abdomen and pelvis without contrast Comparison: None provided Findings: The lung bases are clear. There is right-sided medullary calcinosis. A small nonobstructing calculus is seen in the lower pole of the left kidney. There is mild left hydroureteronephrosis with periureteral inflammatory changes. An obstructing 3 mm calculus is seen at the left ureterovesicular junction. No bowel obstruction, pneumoperitoneum, or pneumatosis. Pelvic contents unremarkable. Normal appendix. The bones are intact. IMPRESSION: 1. Left-sided obstructive uropathy with 3 mm obstructing calculus at the left ureterovesicular junction. 2. Right-sided medullary calcinosis. This document has been electronically signed by: Abilio Dougherty MD on 01/14/2025 09:05:14
[2025-01-14 05:31] VITALS: BP 115/83; PULSE 90; RESP 24; TEMP 36.4; O2SAT 98; BMI 37.7
--- OUTSIDE RECORDS SUMMARY | 2025-01-14 05:50 | XMS_ITS | Clinical Summary ---
Author Organization [address] [place] [address] [place] [phone] Phone Care Team Providers Care Duplicating Machine Operator Name Role Phone Brenda Ray MD Primary Care Provider Allergies Active Allergy Reactions Criticality Noted Date Comments Other 12/15/2023 Medications albuterol HFA (Ventolin HFA) 90 mcg/actuation inhaler as needed. 03/10/2023 Active benzoyl peroxide (Foaming Acne Face Wash) 10 % external wash APPLY TO GROIN EVERY DAY 08/11/2022 Active clindamycin phosphate 1 % gel, once daily Apply peasized amount daily for 2 weeks- on acne spot 12/15/2023 Active famotidine (PEPCID) 20 mg tablet TAKE 1 TABLET BY MOUTH 2 TIMES DAILY NEEDED FOR HEARTBURN. 180 tablet 1 06/09/2024 Active ketoconazole (NIZORAL) 2 % shampooIndicati ons:Dandruff APPLY TO SCALP 2X WEEKLY, LEAVE ON 5 MIN THEN WASH OFF 120 mL 1 09/20/2024 Active Active Problems Problem Noted Date Diagnosed Date Class 1 obesity with body ma ss index (BMI) of 31.0 to 31.9 in adult 02/09/2024 Chlamydia infection 10/27/2018 Overview (02/09/2024): From her partner, did STD test at [facility] Gestational diabetes mellitus in 07/26 Overview (02/09/2024): Diet controlled Hyperlipidemia 07/26/2018 Numerous moles 04/26/2018 Overview (02/09/2024): 12/16/17 referral to [facility] Rhinitis, chronic 04/26/2018 Overview (02/09/2024): 12/16/17 referral to ENT. Chronic R nasal rhinitis. ? Trauma from drug abuse Epidermal cyst 06/17/2017 Insomnia 06/17/2017 Papanicolaou smear of cervix with atypical squamous cells cannot exclude high grade squamous intraepithelial lesion (ASC-H) 05/28/2011 Attention deficit disorder 10/28/2005 Overview (02/09/2024): tested through [facility] Oppositional defiant disorder 10/28/2005 Idiopathic scoliosis and kyphoscoliosis 10/29/19 06 Overview (02/09/2024): Was followed by [facility], felt to be minimal Encounters Date Type Department Care Team Description 12/08/2024 Telephone Obstetrics and Gynecology [address] [phone] Nidia Cormier CNM 11/18/2024 10:30 AM EDT Office Visit Adult Medicine [address] [phone] Dave Guerrero, CHRIST Acute otitis media, unspecified otitis media type (Primary Dx) from Last 3 Months Immunizations Immunization Administration Dates Next Due COVID-19 (Moderna/Spikevax) 12yo and older 11/16/2024 DTP 07/21/1994, 1,1989,1989,1989 [id number] (Pentacel) 2mo to less than 5yo 06/28/1990,04/01/1990 Hepatitis B Pediatric (Enger ix B; Recombivax HB) to less than 20 yo 07/22/2001,03/15/2001,02/10/2001 Hib (HbOC) 06/28/1990,04/01/1990 Influenza Quadravalent, MDCK , 0.5ml, preservative free (Flucelvax) 6mo and older 02/10/2023,12/30/2018 Influenza Quadrivalent, 0.5m l, preservative free (Fluarix; FluLaval; Fluzone) ages 6mo and older (Afluria) 3yo and older 02/21/2022,11/16/2017 Influenza trivalent, 0.5mL, preservative free (Fluarix; FluLaval; Fluzone) ages 6mo and older (Afluria) 3 years and older 12/15/2023 Influenza trivalent, MDCK, 0 .5mL, preservative free (Flucelvax) 6mo and older 11/16/2024 Influenza trivalent, with preservative (Fluzone; Afluria) 6mo and older 01/28/2021,12/12/2019,11/16/2017 MMR, measles mumps and rubel la Live (Priorix; M-M-R II) 12mo and older 07/21/1994,06/28/1990 Moderna SARS-CoV-2 COVID-19, mRNA, LNP-S, preservative free 01/30/2021 OPV 07/21/1994, 1,1989,1989 Pfizer (ages 12 & older) Biv alent, COVID-19 01/04/2022 Pfizer SARS-CoV-2 COVID-19, mRNA, LNP-S, preservative free 01/04/2022 Td Tetanus diptheria (Tdvax) 7yo and older 07/13/2000 Td, Unspecified 07/13/2000 Tdap Tetanus diptheria acell ular pertussis (Boostrix; Adacel) 7yo and older 07/03/2022,12/22/2017 Varicella live (Varivax) 12m o and older 07/30/2000 Surgical History Surgery Date Site/Laterality Comments OTHER SURGICAL HISTORY Right PROCEDURE: SKIN CYST; COMMENT: right leg removed WISDOM TOOTH EXTRACTION PROCEDURE: HISTORICAL WISDOM TEETH EXTRACTION Medical History Medical History Date Comments Attention deficit disorder 10/28/2005 DX:At tention deficit disorder; COMMENT: tested through [facility] [place] Epidermal cyst 06/17/2017 DX:Epidermal cys t History of substance abuse ( [facility] V24, [facility] V28) 01/08/2006 DX:History of substance abus e (HCC); COMMENT: 12/16/17 on methadone. 2006 - Cannabis abuse, continuous Insomnia 06/17/2017 DX:Insomnia Numerous moles 04/26/2018 DX:Numerous mole s; COMMENT: 12/16/17 referral to [facility] Oppositional defiant disorder 10/28/2005 DX :Oppositional defiant disorder Papanicolaou smear of cervix with atypical squamous cells cannot exclude high grade squamous intraepithelial lesion (ASC-H) 05/28/2011 DX:Papanicolaou smear of cer vix with atypical squamous cells cannot exclude high grade squamous intraepithelial lesion (ASC-H) Rhinitis, chronic 04/26/2018 DX:Rhinitis, c hronic; COMMENT: 12/16/17 referral to ENT. Chronic R nasal rhinitis. ? Trauma from drug abuse Scoliosis (and kyphoscoliosi s), idiopathic 10/28/2005 DX:Scoliosis (and kyphoscoli osis), idiopathic; COMMENT: Was followed by [facility], felt to be minimal Family History Medical History Relation Name Comments ADD / ADHD Brother Diabetes Father Hypertension Father Other: renal stones Father No Known Problems Maternal Grandfather No Known Problems Maternal Grandmother Hypertension Mother Thyroid disease Mother No Known Problems Paternal Grandfather No Known Problems Paternal Grandmother No Known Problems Son Breast cancer Neg Hx Colon cancer Neg Hx Relation Name Status Comments Brother Alive Father Alive Maternal Grandfather Maternal Grandmother Mother Alive Paternal Grandfather Paternal Grandmother Son Alive Social History Tobacco Use Types Packs/Day Years Used Date Smoking Tobacco: Former Cigarettes Q uit: 03/09/2019 Smokeless Tobacco: Never Tobacco Cessation:Counseling Given: Not Answered Alcohol Use Standard Drinks/Week Comments Not Currently 0 (1 standard drink = 0.6 oz pur e alcohol) Housing Instability Answer Date Recorde d Are you worried that in the next 2 months you may not have stable housing? No 06/17/2024 Food Access & Nutrition Answer Date Rec orded Do you have access to a vari ety of food including fruits and vegetables? Yes 06/17/2024 Access to Healthcare Answer Date Record ed Within the last 3 months, pepe w many times did you visit the emergency department for your medical care? 0 06/17/2024 Health Literacy Answer Date Recorded How often do you need to hav e someone help you when you read instructions, pamphlets, or other written material from your doctor or pharmacy? Never 06/17/2024 Caregiver: How often do you need to have someone help you when you read instructions, pamphlets, or other written material from your doctor or pharmacy? Not on file 06/17/2024 Financial Risk Answer Date Recorded How hard is it for you to pa y for the very basics like food, housing, medical care, and air conditioning / heating? Not very hard 06/17/2024 Transportation Answer Date Recorded Has the lack of transportati on kept you from meetings, work, or from getting things needed for daily living? No Has the lack of transportati on kept you from medical appointments or from getting medications? No 06/17/2024 Social Isolation Answer Date Recorded How often do you feel lonely or isolated from ose around you? Never 06/17/2024 Food Risk Answer Date Recorded Within the past 12 months we worried whether our food would run out before we got money to buy more. Never true 06/17/2024 Within the past 12 months th e food we bought just didn't last and we didn't have money to get more. Never true 06/17/2024 Dependent Care Answer Date Recorded Do you need help finding or paying for care for your loved ones. For example, children's tutor or elderly care for an older adult? No 06/17/2024 Education Answer Date Recorded Do you think completing more education or training, like finishing a GED, going to college, or learning a trade, would be helpful for you? No 06/17/2024 Employment and Income Answer Date Recor ded During the last four weeks, have you been actively looking for work? No 06/17/2024 Living Situation Answer Date Recorded What is your living situation? Unrecognized valu e 06/17/2024 Comments No Sex and Gender Information Value Date Recorded Sex Assigned at Not on file Legal Sex Female 4:11 PM EST Gender Identity Not on file Sexual Orientation Not on file Obstetrics History Last Filed Vital Signs Vital Sign Reading Time Taken Comments Blood Pressure 104/81 11/18/2024 10:36 AM EDT Pulse 101 11/18/2024 10:36 AM EDT Temperature 36.4 C (97.5 F) 11/18/2024 10:36 AM EDT Respiratory Rate - - Oxygen Saturation 98% 03/06/2024 2:39 PM EST Inhaled Oxygen Concentration - - Weight 91.6 kg (202 lb) 11/18/2024 10:36 AM EDT Height 157.5 cm (5' 2 ) 11/18/2024 10:36 AM EDT Body Mass Index 36.95 11/18/2024 10:36 AM EDT Plan of Treatment Upcoming Encounters Date Type Department Care Team (Late st Contact Info) Description 06/22/2025 9:00 AM EDT Office Visit Adult Medicine - [place] [address] [place] [phone] Dave Guerrero PA [address] [place] [address] Health Maintenance Due Date Last Done Comments HPV Vaccines (1 - 3-dose SCDM series) 2016 HIV Screening 02/05/2022 Depression Screening 03/09/2024 COVID-19 Vaccine (6 - Moderna risk ) 05/16/2025 11/16/2024, 01/04/2022, 01/04/2022, Additional history exists Social Influencers of Health Screening 06/17/2025 06/17/2024 Cervical Cancer Screening: HPV 10/24/2027 10/23/2022 Cholesterol Screening (Lipid Panel) 08/23/2029 08/23/2024, 07/03/2022 DTaP,Tdap,and Td Vaccines (10 - Td or Tdap) 07/03/2032 07/03/2022, 12/22/2017, 07/13/2000, Additional history exists RSV Immunization Adult Patients (1 - 1-dose 75+ series) 2064 HIB Vaccines Completed 06/28/1990, 06/08, 04/01/1990, Additional history exists IPV Vaccines Completed 07/21/1994, 09/07, 06/28/1990, Additional history exists MMR Vaccines Completed 07/21/1994, 06/28/1990 Varicella Vaccines Aged Out 07/30/2000 No longer eligible based on patient's age to complete this topic Hepatitis B Vaccines Completed 07/22/2001, 03/15/2001, 02/10/2001 Hepatitis C Screening Completed 08/23/2024 Influenza Vaccine Completed 11/16/2024, , 02/10/2023, Additional history exists Hepatitis A Vaccines Aged Out No long er eligible based on patient's age to complete this topic Meningococcal ACWY Vaccine Aged Out N o longer eligible based on patient's age to complete this topic Meningococcal B Vaccine Aged Out No l onger eligible based on patient's age to complete this topic Pneumococcal Vaccine: Pediatrics (0 to 5 Years) and At-Risk Patients (6 to 49 Years) Aged Out No longer eligible based on patient's age to complete this topic RSV Immunization Patients Under 20 months Aged Out No longer eligible based on patient's age to complete this topic Procedures Procedure Name Priority Date/Time Associated Diagnosis Comments HEPATITIS C ANTIBODY Routine 08/23/2024 8:34 AM EDT Routine general medical examination at a health care facility LIPID PANEL WITH REFLEX TO DIRECT LDL Routine 08/23/2024 8:34 AM EDT Routine general medical examination at a [facility] care facility HM HPV Routine 10/23/2022 from Last 3 Months or Most Recently Relevant to Health Maintenance Results * Hepatitis C antibody (08/23/2024 8:34 AM EDT) Pathologist [facility] Hepatitis C Antibody Negative Negative LAB CHEMISTRY METHOD 08/23/2024 1:41 PM EDT [facility] Blood Venous blood specimen / Unknown Venipuncture / Unknown 08/23/2024 8:34 AM EDT 08/23/2024 8:34 AM EDT us Dave POLO LAB BLOOD ORDERABLES Final Re sult [facility] [address] [place] [address], * (ABNORMAL) Lipid panel with reflex to direct LDL (08/23/2024 8:34 AM EDT) Cholesterol 166 0 - 200 mg/dL LAB CHEMISTRY METHOD 08/23/2024 12:32 PM EDT [facility] Triglycerides 59 0 - 150 mg/dL LAB CHEMISTRY METHOD 08/23/2024 12:32 PM EDT [facility] HDL 35(L) >=40 mg/dL LAB CHEMISTRY METHOD 08/23/2024 12:32 PM EDT [facility] LDL Calculated 119(H) 0 - 100 mg/dL LAB CHEMISTRY METHOD 08/23/2024 12:32 PM EDT [facility] VLDL Cholesterol Farrukh 11.8 mg/dL LAB CHEMISTRY METHOD 08/23/2024 12:32 PM EDT [facility] Non HDL Chol. (LDL+VLDL) 131 <145 mg/dL LAB CHEMISTRY METHOD 08/23/2024 12:32 PM EDT [facility] Chol/HDL Ratio 4.7(H) 0.0 - 4.4 LAB CHEMISTRY METHOD 08/23/2024 12:32 PM EDT [facility] Blood Venous blood specimen / Unknown Venipuncture / Unknown 08/23/2024 8:34 AM EDT 08/23/2024 8:34 AM EDT Dave POLO LAB BLOOD ORDERABLES Final Re sult [facility] [address] [place] [address], * Cervical Cancer Screening: HPV (10/23/2022) Pathologist [facility] Cervical Cancer Screening: HPV negative, abstracted Historical Provider HEALTH MAINTENANCE Final Result from Last 3 Months or Most Recently Relevant to Health Maintenance Insurance [facility] Care Teams Duplicating Machine Operator Relationship Specialty Start Date End Date Brenda Ray MD [address] [place] [phone] PCP - General Internal Medicine 04/30/21
--- OUTSIDE RECORDS SUMMARY | 2025-01-14 05:50 | XMS_ITS ---
Author Name [facility] Organization Unknown Care Team Organization Name Specialty Phone Email Start Date End Da te [facility] LINETTE MACIEL Primary Care 08/15/2022 10/26/2023 [facility] Oral Mota Primary Care 01/14/20222023
--- NOTE | 2025-01-14 05:51 | ED.ABDPAIN ---
HPI - Abdominal Pain General Chief Complaint: Abdominal Pain Stated Complaint: pain and vomitting Time Seen by Provider: 01/14/25 05:50 History of Present Illness ED Provider: Dr. Santi Jones HPI narrative: 34-year-old female with a history of substance dependence (cocaine/heroin-intranasal) in remission x 8 years, GERD, anxiety, ADHD who presents emergency department for evaluation of left flank pain radiating left lower abdomen associated with nausea and vomiting. Patient states that the pain woke her up from sleep and came on suddenly. Initially the pain was mild to moderate but then became severe and was 10/10. She describes the pain as a ?labor cramping?. Currently the pain is 6/10. Patient states that she was driven to the hospital by her father and in route she felt numbness in her face and hands, Minda's very diaphoretic and felt like she was going to pass out. This has a 1st episode of this pain. She has no history of kidney stones. She denied fever, chills, chest pain, shortness of breath, frequency, urgency or dysuria. Patient denies history of kidney stones. Related Data Home Medications ?Medication ?Instructions ?Recorded ?Confirmed famotidine 20 mg tablet 20 mg PO BID 02/23/23 04/13/23 Previous Rx's ?Medication ?Instructions ?Recorded amitriptyline 10 mg tablet 10 mg PO BEDTIME 30 days #30 tabs 02/23/23 riboflavin (vitamin B2) 400 mg 400 mg PO DAILY 30 days #30 tabs 02/23/23 tablet sumatriptan succinate 100 mg tablet 50 - 100 mg (0.5 - 1 x 100 mg) PO 02/23/23 .COMPLEX PRN migraine headache 30 days #12 tabs albuterol sulfate 90 mcg/actuation 2 inh inhalation Q4-6H PRN 03/10/23 breath activated powder inhaler shortness of breath or wheezing #1 ea azithromycin 250 mg tablet See Rx Instructions PO .COMPLEX #6 03/10/23 tabs prednisone 20 mg tablet 40 mg (2 x 20 mg) PO DAILY 5 days 03/10/23 #10 tabs ketorolac 10 mg tablet 10 mg PO Q8H PRN Kidney stone pain 01/14/25 5 days #20 tabs tamsulosin 0.4 mg capsule (Flomax) 0.4 mg PO DAILY 14 days #14 caps 01/14/25 Allergies Allergy/AdvReac Type Severity Reaction Status Date / Time No Known Allergies (No Known Allergy Verified 01/14/25 05:33 Allergies*) Review of Systems Review of Systems Yes all other systems are reviewed and are negative [facility] Past Medical History [facility] Narrative: Social history: Patient denies tobacco use. She stopped smoking 5 years prior and smoked for 50 she denies alcohol use. The patient states she smokes 1 joint of marijuana daily. Patient states that she was using intranasal heroin and cocaine but has been sober for 8 years Medical History Substance dependence in remission GERD (gastroesophageal reflux disease) Anxiety ADHD Surgical History [place] teeth removed Family History Family History Father HTN (hypertension) Mother HTN (hypertension) Thyroid disease Social History Social History Alcohol intake: never Patient Tobacco Use Status: Former Tobacco user Smoked in Last 30 Days: No Substance Use Type: Marijuana Advance Directives: No Advance Directives Information Provided: No Do you have a plan to hurt others: No Plan Physical Exam ED Vital Signs: Vital Signs - 24 hr 01/14/25 05:31 01/14/25 05:58 01/14/25 08:59 Temperature 97.6 F 97.6 F 98.3 F Pulse Rate 90 91 105 H Respiratory Rate 24 H 20 12 Blood Pressure 115/83 110/83 119/69 Pulse Oximetry 98 100 96 Oxygen Delivery Method Room Air Room Air Room Air BMI result Body Mass Index 37.7 Vital signs were normal Exam: General: Awake, alert in no distress Head: Normocephalic, atraumatic EENT: PERRL, sclera and conjunctiva are normal, mouth with no erythema or exudates Neck: Supple, no adenopathy Lung: breath sounds symmetric, no wheezing, no rales and no rhonchi Chest: symmetric movement, nontender Heart: regular rate and rhythm, normal S1, S2 no murmurs or rubs Abdomen: soft, non-tender, nondistended, normal bowel sounds Back: no vertebral tenderness, no CVAT Extremities: no deformities, moves all extremities symmetrically, no edema Neuro: Awake, alert, oriented, normal speech, cranial nerves 2-12 intact, moves all extremities symmetrically Psych: Pleasant, cooperative Medical Decision Making Medical Decision Making MDM Narrative: 34-year-old female with a history of substance dependence (cocaine/heroin-intranasal) in remission x 8 years, GERD, anxiety, ADHD who presents emergency department for evaluation of left flank pain radiating left lower abdomen associated with nausea and vomiting. Patient states that the pain woke her up from sleep and came on suddenly. Initially the pain was mild to moderate but then became severe and was 10/10. She describes the pain as a ?labor cramping?. Currently the pain is 6/10. Patient states that she was driven to the hospital by her father and in route she felt numbness in her face and hands, Minda's very diaphoretic and felt like she was going to pass out. This has a 1st episode of this pain. She has no history of kidney stones. She denied fever, chills, chest pain, shortness of breath, frequency, urgency or dysuria. Patient denies history of kidney stones. Vital signs were normal. Physical examination was unremarkable. Differential diagnosis: ?Includes but is not limited to renal colic, ureteral colic, ureteral stone, diverticulitis, pancreatitis, urinary tract infection, pyelonephritis, anemia, electrolyte abnormalities Course: My interpretation patient's laboratory evaluation is as follows: CBC was normal. CMP was normal with normal kidney function. Calcium was normal. Glucose was elevated 149. Urinalysis/microscopic revealed RBCs, WBCs, bacteria and significant number squamous cell suggesting this has a non clean catch urine specimen. This time I do not think that the patient needs antibiotics but I did tell her that if a significant organism grew out of her urine the ED would contact her to start her on antibiotic. The patient's pain significantly improved after getting IV Toradol and she is currently pain-free. 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 Patient's calcium was normal. Patient was discharged home with prescriptions for Toradol and Flomax. She was given her 1st dose of Flomax here in the emergency department. Patient is not sexually active and I did warn her about the teratogenic effects of Flomax and that she should not have intercourse/sex for at least 1 month after completing Flomax. Lab Data 01/14/25 05:52 01/14/25 06:15 Labs: Lab Results 01/14/25 01/14/25 01/14/25 Range/Units 05:52 06:15 09:01 WBC 7.8 (4.8-10.8) X10*3/uL RBC 4.59 (4.20-5.50) X10*6/uL Hgb 14.0 (12.0-16.0) g/dl Hct 40.6 (37.0-47.0) % MCV 88.5 (80.0-98.0) fL MCH 30.5 (27.0-33.0) pg MCHC 34.5 (31.0-35.0) g/dl RDW 12.9 (11.0-16.0) % Plt Count 236 (160-400) X10*3/uL MPV 9.5 (9.4-12.3) fL Immature Gran % (Auto) 0.3 (0.0-0.4) % Neut % (Auto) 71.7 (45-73) % Lymph % (Auto) 22.2 (20-40) % [place] % (Auto) 4.5 (2-11) % Eos % (Auto) 0.9 (0-4) % Baso % (Auto) 0.4 (0-2) % Lymph # (Auto) 1.7 (1.2-4.9) X10*3/uL [place] # (Auto) 0.4 (0.1-1.2) X10*3/uL Eos # (Auto) 0.1 (0.0-0.4) X10*3/uL Baso # (Auto) 0.0 (0.0-0.2) X10*3/uL Abs Immat Gran (auto) 0.02 (0.00-0.03) X10*3/uL Absolute Neuts (auto) 5.6 (2.0-8.3) x10*3/uL Absolute Nucleated RBC 0.000 (0.0-0.012) X10*3/uL Nucleated RBC % (auto) 0.0 (0.0-0.2) /100WBC Sodium 138 (135-145) mmol/L Potassium 3.6 (3.3-5.1) mmol/L Chloride 111 H (96-108) mmol/L Carbon Dioxide 16 L (22-29) mmol/L Anion Gap 15 (12-20) BUN 16 (9-16) mg/dL Creatinine 0.67 (0.5-1.4) mg/dL Estim Creat Clear Calc 124.8 Estimated GFR > 60 Random Glucose 149 H (60-115) mg/dL Calcium 8.9 (8.4-10.2) mg/dL Total Bilirubin 0.5 (0.0-1.0) mg/dL Direct Bilirubin 0.2 (0.0-0.5) mg/dL AST 21 (5-31) U/L ALT 29 (0-31) U/L Alkaline Phosphatase 102 (39-117) U/L Total Protein 7.2 (6.5-8.0) g/dL Albumin 4.5 (3.5-5.0) g/dL Lipase 17 (8-78) U/L Beta HCG, Quant < 2 mIU/mL Urine Color [place] A Urine Appearance Cloudy Urine pH 6.0 (5.0-9.0) Ur Specific [place] 1.025 (1.005-1.025) Urine Protein 100 (2+) H (Neg-Trace) mg/dL Urine Glucose (UA) Negative (Negative) mg/dL Urine Ketones 15 (Negative) mg/dL Urine Blood Large (3+) H (Negative) Urine Nitrite Negative (Negative) Ur Leukocyte Esterase Small (1+) H (Negative) Urine RBC >20 H (0-2) /HPF Urine WBC 11-20 H (0-5) /HPF Ur Squamous Epith Cells 11-20 (0-2) /HPF Urine Bacteria 1+ (None Seen) Hyaline Casts 0-2 (0-2) /LPF Radiology Impression Discussion of test interpretation with radiology: I have reviewed the radiologist's reading. Radiologist Impression: CT abdomen and pelvis without contrast Comparison: None provided Findings: The lung bases are clear. There is right-sided medullary calcinosis. A small nonobstructing calculus is seen in the lower pole of the left kidney. There is mild left hydroureteronephrosis with periureteral inflammatory changes. An obstructing 3 mm calculus is seen at the left ureterovesicular junction. No bowel obstruction, pneumoperitoneum, or pneumatosis. Pelvic contents unremarkable. Normal appendix. The bones are intact. IMPRESSION: 1. Left-sided obstructive uropathy with 3 mm obstructing calculus at the left ureterovesicular junction. 2. Right-sided medullary calcinosis. This document has been electronically signed by: Abilio Dougherty MD on 01/14/2025 09:05:14 Medications Administered Discontinued Medications Generic Name Dose Route Start Last Admin Trade Name Freq PRN Reason Stop Dose Admin Sodium Chloride 1,000 mls @ 999 mls/hr 01/14/25 06:02 01/14/25 06:12 Ns IV 01/14/25 07:02 999 mls/hr .Q1H1M STA Administration Ketorolac Tromethamine 15 mg 01/14/25 06:02 01/14/25 06:11 Ketorolac Tromethamine 15 Mg/Ml Vial IVPUSH 01/14/25 06:03 15 mg ONCE ONE Administration Ondansetron HCl 4 mg 01/14/25 05:36 01/14/25 05:55 Ondansetron Hcl 4 Mg/2 Ml Vial IVPUSH 01/14/25 05:37 4 mg ONCE ONE Administration Discharge Plan Discharge Clinical Impression: Ureteral colic, Left flank pain, Left ureteral calculus Patient Disposition: Home, Self-Care Instructions: How to Strain Your Urine (ED), Ureteral Stones (ED) Additional Instructions: Your blood work revealed normal kidney function. Your urine was positive for white blood cells and red blood cells and this has consistent with your kidney stone. I do not think that you have a urine infection however the laboratory will try to grow bacteria out of your urine and if you grow a significant bacteria in the emergency department will contact you to start you on an antibiotic. Your CT scan of your abdomen pelvis without IV contrast revealed a left-sided 3 mm stone in the ureter (the tube that connects the ureter to the bladder). The stone is at the connection point between the bladder in the kidney (he has ureteral vesicular junction-UVJ). So you almost pass the stone. Take Toradol 10 mg pills, 1 pill every 8 hours as needed for pain. Take extra-strength Tylenol 100 mg pills, 2 pills every 6 hours as needed for pain Take Flomax (tamsulosin) 0.4 mg once a day for the next 2 weeks or until you pass the stone. ?This medication helps relax the ureter and may help you pass the stone sooner. Strain your urine to catch a stone. If you catch a stone bring it to the urologist. Follow-up with our Urology group. I sent a referral to the group and they will contact you to make a follow up appointment. If you do not from their office you can call them in 4 days to try to arrange a follow up appointment. Please return to the emergency department if your symptoms get worse or if you develop any symptoms that are concerning to you. The CT scan did reveal an incidental finding on the right called medullary calcinosis. This can have multiple causes but your blood chemistries revealed a normal calcium. You can discuss this finding with the urologist CT abdomen and pelvis without contrast Comparison: None provided Findings: The lung bases are clear. There is right-sided medullary calcinosis. A small nonobstructing calculus is seen in the lower pole of the left kidney. There is mild left hydroureteronephrosis with periureteral inflammatory changes. An obstructing 3 mm calculus is seen at the left ureterovesicular junction. No bowel obstruction, pneumoperitoneum, or pneumatosis. Pelvic contents unremarkable. Normal appendix. The bones are intact. IMPRESSION: 1. Left-sided obstructive uropathy with 3 mm obstructing calculus at the left ureterovesicular junction. 2. Right-sided medullary calcinosis. This document has been electronically signed by: Abilio Dougherty MD on 01/14/2025 09:05:14 Prescriptions: New tamsulosin [Flomax] 0.4 mg capsule 0.4 mg PO DAILY 14 Days Qty: 14 0RF ketorolac 10 mg tablet 10 mg PO Q8H PRN (Reason: Kidney stone pain) 5 Days Qty: 20 0RF No Action albuterol sulfate 90 mcg/actuation aerosol powdr breath activated 2 inh inhalation Q4-6H PRN (Reason: shortness of breath or wheezing) Qty: 1 0RF azithromycin 250 mg tablet See Rx Instructions .ROUTE .COMPLEX Qty: 6 0RF Rx Instructions: For 250 mg dose pack: take 500 mg today (day 1), then 250 mg for 4 days (days 2-5) prednisone 20 mg tablet 40 mg PO DAILY 5 Days Qty: 10 0RF famotidine 20 mg tablet 20 mg PO BID sumatriptan succinate 100 mg tablet 50 - 100 mg PO .COMPLEX PRN (Reason: migraine headache) 30 Days Qty: 12 6RF Rx Instructions: 50 - 100 mg orally at onset of headache, may repeat in 2 hrs PRN; max 2 tabs per day or 4 tabs/week (may take with Ibuprofen) riboflavin (vitamin B2) 400 mg tablet 400 mg PO DAILY 30 Days Qty: 30 6RF amitriptyline 10 mg tablet 10 mg PO BEDTIME 30 Days Qty: 30 3RF Referrals: Pascual Paiz MD [Physician, Urology] Referral Note: Left 3 mm ureteral stone at the UVJ. Right medullary calcinosis Print Language: Guamanian
--- NOTE | 2025-01-14 05:54 | PC.NURSE ---
20 g IV placed in the right AC
[2025-01-14 05:56] LABS: Hematocrit 40.6 % (37.0-47.0); Hemoglobin 14.0 g/dl (12.0-16.0); Imm Gran Abs Auto 0.02 X10*3/uL (0.00-0.03); Imm Gran Pct Auto 0.3 % (0.0-0.4); Lymphocytes Absolute Auto 1.7 X10*3/uL (1.2-4.9); MANUAL DIFF FLAG NO; Mean Corpuscular HGB Conc 34.5 g/dl (31.0-35.0); Mean Corpuscular Hemoglobin 30.5 pg (27.0-33.0); Mean Corpuscular Volume 88.5 fL (80.0-98.0); NRBC Abs Auto 0.000 X10*3/uL (0.0-0.012); NRBC Pct Auto 0.0 /100WBC (0.0-0.2); Platelet Count 236 X10*3/uL (160-400); Red Blood Count 4.59 X10*6/uL (4.20-5.50); White Blood Count 7.8 X10*3/uL (4.8-10.8)
[2025-01-14 05:58] VITALS: BP 110/83; PULSE 91; RESP 20; TEMP 36.4; O2SAT 100
[2025-01-14 06:40] LABS: Alanine Aminotransferase 29 U/L (0-31); Albumin Level 4.5 g/dL (3.5-5.0); Alkaline Phosphatase 102 U/L (39-117); Anion Gap 15 (12-20); Aspartate Amino Transferase 21 U/L (5-31); Blood Urea Nitrogen 16 mg/dL (9-16); Calcium 8.9 mg/dL (8.4-10.2); Carbon Dioxide 16 mmol/L (22-29); Chloride 111 mmol/L (96-108); Creatinine Clr Calc Pharmacy 124.8; Estimated Glomerular Filt Rate > 60; Lipase 17 U/L (8-78); Potassium 3.6 mmol/L (3.3-5.1); Sodium 138 mmol/L (135-145); Total Protein 7.2 g/dL (6.5-8.0)
--- NOTE | 2025-01-14 07:21 | PC.NURSE ---
Care of Pt assumed at change of shift. Pt resting quietly, playing on her phone. NAD noted and no complaints offered at this time. IVF noted to be behind schedule. Pt encouraged to keep are straight to allow for proper infusion, Pt verbalized understanding. Awaiting CT scan results.
[2025-01-14 08:59] VITALS: BP 119/69; PULSE 105; RESP 12; TEMP 36.8; O2SAT 96
[2025-01-14 09:09] LABS: Appearance Urine Cloudy; Glucose Urine UA Negative (Negative); PH 6.0 (5.0-9.0); Specific Gravity - Urine 1.025 (1.005-1.025); UMIC TRIGGER UACC YES
[2025-01-14 09:16] LABS: UACC Culture Trigger YES
[2025-01-14 09:50] VITALS: BP 119/69; PULSE 105; RESP 12; TEMP 36.8; O2SAT 96
== END 2025-01-14 10:12 | disposition home or self-care (01) ==
PROVIDERS: Emergency Provider Emergency Medicine Emergency Medical Services; PCP Physician Assistant
DX: N20.1 Calculus of ureter (principal); F14.21 Cocaine dependence, in remission; F11.21 Opioid dependence, in remission
CPT/HCPCS: 36415; 74176; 80053; 81001; 82248; 83690; 84702; 85025; 87086; 96361; 96374; 96375; 99284; 99285; J1885; J2405

== ENCOUNTER → 2025-01-14 06:02 | Outpatient (BNV) | payer OTHER, SELFPAY | PROVIDERS: Emergency Provider Emergency Medicine Emergency Medical Services; PCP Physician Assistant; Visit Provider Radiology Diagnostic Radiology | DX: N20.1 Calculus of ureter (principal); E83.59 Other disorders of calcium metabolism | CPT/HCPCS: 74176 ==

== ENCOUNTER 2025-02-09 14:09 | Outpatient (AMB) | payer OTHER, SELFPAY ==
--- NOTE | 2025-02-09 14:29 | MHC.OFFVIS ---
Intake Visit Reasons: obstructing stone SET /UA Intake Note: New Patient is present for Obstructing stone Urology Rx:Amitriptyline , Tamsulosin Blood Thinners:none NKDA Imaging completed: Abd CT 01/14/25 Party Plan Sales Director Required: No Accompanied by: Self / Same As Patient Allergies No Known Allergies (No Known Allergies*) Allergy (Verified 02/09/25 14:30) HPI Comments Details: Manisha is a pleasant female. She is a patient of Dr. Guerrero. She is seen for the following urologic conditions - nephrolithiasis Recent stone passage at hospital CT scan shows 2nd stone within left renal pole Recommend ESWL Nephrolithiasis Recent presentation through emergency room Left-sided flank pain Distal left stone has passed No prior nephrolithiasis Mother has stones Imaging shows 2nd stone and left renal lower pole PFSH Medical History Substance dependence in remission GERD (gastroesophageal reflux disease) Anxiety ADHD Surgical History [place] teeth removed Family History Father HTN (hypertension) Mother HTN (hypertension) Thyroid disease Social History Alcohol intake: never Patient Tobacco Use Status: Former Tobacco user Substance Use Type: Marijuana Review of Systems Const Denies chills and Denies fever(s) Card Reports no additional complaints and Denies syncope Resp Denies cough GI Denies abdominal pain and Denies heartburn Reports as per HPI and Denies change in libido Neuro Denies syncope Psych Denies change in libido Endo Denies change in libido Physical Exam Const General: cooperative, healthy appearing, comfortable and no acute distress Orientation/consciousness: patient oriented x3 HEENT Face and sinus: Yes normal facial exam Mouth: moist mucous membranes Neck Neck: Yes normal visual inspection, Yes full ROM and Yes trachea midline Chest Chest palpation & inspection: normal inspection of the chest Resp Effort & Inspection: normal respiratory effort, able to speak in complete sentences and no respiratory distress GI Inspection: Yes normal to inspection Back/Spine/Pelvis Cervical Spine: normal cervical lordosis Thoracic/Lumbar Spine: thoracic and lumbar spine normal to inspection Skin General skin exam: no rashes or lesions noted Neuro General: patient oriented x3, gait normal, tone normal and moves all extremities Extrem General: Yes normal to inspection and Yes capillary refill normal Results AMB Urinalysis, Automated UA Leukoctes 0 Far[place]q/uL Last Edit by Estelita Milan [facility] on 02/09/25 14:29 UA Nitrite Negative Last Edit by Estelita Milan [facility] on 02/09/25 14:29 UA Urobilinogen 0.2 mg/dL Last Edit by Estelita Milan [facility] on 02/09/25 14:29 UA Protein 0 mg/dL Last Edit by Estelita Milan, [facility] on 02/09/25 14:29 UA pH 6.0 Last Edit by Estelita Milan, [facility] on 02/09/25 14:29 UA Blood 0 Gómez/uL Last Edit by Estelita Milan, [facility] on 02/09/25 14:29 UA Specific [place] 1.030 Last Edit by Estelita Milan [facility] on 02/09/25 14:29 UA Ketone Negative Last Edit by Estelita Milan [facility] on 02/09/25 14:29 UA Bilirubin 0 mg/dL Last Edit by Estelita Milan [facility] on 02/09/25 14:29 UA Glucose 0 mg/dL Last Edit by Estelita Milan [facility] on 02/09/25 14:29 Results Reviewed Results Reviewed: Laboratory Last Values Urine pH (Auto) 6.0 02/09/25 14:24 Specific [place] (Auto) 1.030 02/09/25 14:24 Urine Protein (Auto) 0 mg/dL 02/09/25 14:24 Glucose (UA)(Auto) 0 mg/dL 02/09/25 14:24 Urine Ketones (Auto) Negative 02/09/25 14:24 Urine Blood (Auto) 0 Gómez/uL 02/09/25 14:24 Urine Nitrite (Auto) Negative 02/09/25 14:24 Urine Bilirubin (Auto) 0 mg/dL 02/09/25 14:24 Urine Urobilinogen (Auto) 0.2 mg/dL 02/09/25 14:24 Leukocyte Esterase (Auto) 0 Farooq/uL 02/09/25 14:24 Assessment & Plan Assessment & Plan (1) Nephrolithiasis: Code(s): N20.0 - Calculus of kidney Category: Medical Plan Extracorporeal Shock Wave Lithotripsy We discussed the nature of the decision and reasonable alternatives for performing the above surgery. Interventions include chemical dissolution, ESWL, ureteroscopy with laser lithotripsy and stent placement, PCNL. Options such as medical therapy were discussed. The relative uncertainties and benefits related to each alternate procedure were adequately discussed. General surgical risks including, but not limited to, pain, bleeding, infection, myocardial infarction, pulmonary embolus, deep vein thrombosis and cerebrovascular accident which may result in further hospitalization were discussed. Full disclosure of the procedure as well as all major risks, benefits and complications were discussed including but not limited to risks of bleeding, injury to the kidney with hematoma or arron-hematoma, failure to fragments stone, potential for ureteric obstruction from stone passage and need for secondary procedures. There is a small long-term risk of hypertension and a question manny of diabetes. Success rate of fragmentation and passage is approximately 70- 75%. This is compared to the risks and benefits for ureteroscopy which has a higher success rate but is a more invasive procedure. The success rate of the procedure was discussed. Success of the procedure in the short-term does not necessarily guarantee that long-term success will be maintained. Suitable follow up will need to be maintained. The patient showed understanding of the discussion as well as the typical recovery time, and the outpatient nature of this procedure. Opportunity was given for questions. Repeat-back protocol used to confirm understanding. They wish to proceed with left ESWL Orders: Orders Surgical Today N20.0 - Calculus of kidney AMB Urinalysis Automated Today N13.8 - Other obstructive and reflux uropathy, N40.1 - Benign prostatic hyperplasia with lower urinary tract symptoms Patient Instructions: This note is constructed using voice recognition software. While every effort has been made to ensure accuracy supervisor mail carriers errors may have been included. Imaging studies, laboratory and physical exam results were discussed and reviewed in detail. No major barriers to patient understanding were identified. An opportunity to ask questions regarding the treatment plan was provided. All questions were answered. The patient expressed understanding and agreement with the above treatment plan. The patient is aware they should contact our office by phone for worsening of their current condition or the appearance of new urologic symptoms. Compliance is encouraged with any medications and followup testing that is ordered. It is a privilege to participate in the urologic care of your patient. If you have any questions or concerns regarding treatment for the above conditions, or other urologic issues, please do not hesitate to contact me. The office telephone contact is [phone]. Sincerely, Dr Pascual Paiz MD, [facility] - Urology Compassionate Specialist Care for the Genitourinary System Coding Level of Care Code New Pt Level 4 (68279) Diagnoses Nephrolithiasis N20.0
== END 2025-02-09 15:06 | disposition home or self-care (01) ==
LOC: HO.HUSH 14:10
PROVIDERS: PCP Physician Assistant; Visit Provider Urology
DX: N40.1 Benign prostatic hyperplasia with lower urinary tract symptoms (principal); N13.8 Other obstructive and reflux uropathy; N20.0 Calculus of kidney
CPT/HCPCS: 99204

== ENCOUNTER 2025-02-09 14:09 | Outpatient (REF) | payer OTHER, SELFPAY | END 2025-02-09 14:10 | disposition home or self-care (01) | LOC: HO.LNP 14:09 | PROVIDERS: PCP Physician Assistant; Visit Provider Urology | DX: N20.0 Calculus of kidney (principal); N13.8 Other obstructive and reflux uropathy | CPT/HCPCS: 81003; 88300 ==

== ENCOUNTER 2025-02-10 09:56 | Outpatient (REF) | payer OTHER, SELFPAY | END 2025-02-10 09:57 | disposition home or self-care (01) | LOC: HO.LAB 09:56 | PROVIDERS: Visit Provider Urology | DX: N20.0 Calculus of kidney (principal) | CPT/HCPCS: 82365 ==